=== PATIENT | female | born 1955 | race Caucasian/White ===

== ENCOUNTER → 2017-01-06 | Outpatient (CLI) | payer BC | LOC: MC.RAD 15:20 | DX: Z12.31 Encounter for screening mammogram for malignant neoplasm of breast (principal) ==

== ENCOUNTER → 2018-01-13 | Outpatient (CLI) | payer BC | LOC: MC.RAD 11:19 | DX: Z12.31 Encounter for screening mammogram for malignant neoplasm of breast (principal) ==

== ENCOUNTER → 2019-05-23 | Outpatient (CLI) | payer BC | LOC: MC.RAD 09:30 | DX: Z12.31 Encounter for screening mammogram for malignant neoplasm of breast (principal) ==

== ENCOUNTER 2019-09-26 12:44 | Emergency (ER) | payer BC ==
[~2019-09-26] VITALS: Ht 160 cm; Wt 57.7 kg
[2019-09-26 12:56] VITALS: BP 174/92; TEMP 98.9
[2019-09-26 15:03] VITALS: PULSE 73
== END 2019-09-26 15:03 | disposition home or self-care (01) ==
LOC: COL.ER 12:44
DX: M79.605 Pain in left leg (principal); Z87.442 Personal history of urinary calculi

== ENCOUNTER → 2020-12-29 | Outpatient (CLI) | payer BC ==
[~2020-12-29] MED LIST: ASPIRIN 81M81 MG/TA2 PO; CLARITIN 1010 MG/TAB PO; COLACE LIQUI10 MG/ML PO; MIRALAX PA17 GM/Dose PO; TIROSINT75 MC1 PO
== END ==
LOC: COL.CARD 11-25 09:00
DX: R55 Syncope and collapse (principal)

== ENCOUNTER → 2021-05-05 | Outpatient (CLI) | payer BC | LOC: COL.RAD 12:36 | DX: M79.671 Pain in right foot (principal) ==

== ENCOUNTER 2023-01-04 09:02 | Day surgery (SDC) | payer BC ==
[~2023-01-04] VITALS: Ht 160 cm; Wt 69.8 kg
[2023-01-04] MEDS ORDERED: NORVASC 5MG5 MG/TAB PO (09:53)
[2023-01-04] MEDS ORDERED: FEMRING0.1 MG/24 VG (09:57)
[2023-01-04] MEDS ORDERED: TIROSINT88 MC1 PO (10:04)
[2023-01-04] MEDS ORDERED: CRANBERRY125 MG PO (10:05)
[2023-01-04] MEDS ORDERED: MAGNESIUM200 MG PO (10:07)
[2023-01-04] MEDS ORDERED: SINGULAIR 110 MG/TAB PO (10:08)
[2023-01-04 10:12] VITALS: BP 137/96; PULSE 81; TEMP 98.8
[2023-01-04 11:15] VITALS: BP 125/90; PULSE 82; TEMP 98.8
--- NOTE | 2023-01-04 11:15 | NUR ---
1115 PATIENT RETURNS TO ROOM 5 VIA CART. PATIENT IS ALERT AND ORIENTED. PATIENT AMBULATES TO RECLINER WITH THE ASSISTANCE OF 2 NURSES. RESPIRATIONS EVEN AND UNLABORED. VITAL SIGNS OBTAINED. PATIENT REQUESTED CRANBERRY JUICE, NO DIFFICULTIES SWALLOWING. 1130 THIS NURSE REVIEWED DISCHARGE INSTRUCTIONS WITH PATIENT. PATIENT VERBALIZED UNDERSTANDING. 1138 DISCONTINUED IV FROM RIGHT HAND WITH NO DIFFICULTIES. 1145 PATIENT DISCHARGES FROM UNIT VIA WHEELCHAIR IN STABLE CONDITION TO PERSONAL CAR.
[2023-01-04 11:30] VITALS: BP 113/88; PULSE 76
[2023-01-04 11:40] VITALS: BP 131/86; PULSE 72
== END 2023-01-04 11:45 | disposition home or self-care (01) ==
LOC: SDCO 09:02
DX: K57.30 Diverticulosis of large intestine without perforation or abscess without bleeding (principal); K64.0 First degree hemorrhoids; I10 Essential (primary) hypertension
CPT/HCPCS: J2704; J7120